=== PATIENT | male | born 1955 | race Caucasian/White ===

== ENCOUNTER → 2024-01-29 15:14 | Outpatient (BNVA) | payer BC, SELFPAY | PROVIDERS: Visit Provider Family Medicine | DX: I49.9 Cardiac arrhythmia, unspecified (principal) | CPT/HCPCS: 93005 ==

== ENCOUNTER 2024-05-06 16:54 | Outpatient (CLI) | payer BC, SELFPAY ==
--- NOTE | 2024-05-06 17:06 | XR_ITS ---
WS: [id number] XR lumbar spine 2-3V* [id number] REASON FOR EXAM: chronic back pain FINDINGS: Mild dextroscoliosis. Straightening of the normal lordosis. No significant vertebral body compression deformity or focal vertebral body lesion. Moderate disc base narrowing and osteophytosis throughout the lumbar spine. Mild anterolisthesis of L3 in relation to L2 and L4 in relation to L3. No spondylolysis. XR/XR lumbar spine 2-3V* [id number] IMPRESSION: Multilevel degenerative spondylosis.
== END 2024-05-06 16:55 | disposition home or self-care (01) ==
PROVIDERS: PCP Family Medicine; Visit Provider Family Medicine
DX: M47.896 Other spondylosis, lumbar region (principal); G89.29 Other chronic pain; M41.86 Other forms of scoliosis, lumbar region; I25.10 Atherosclerotic heart disease of native coronary artery without angina pectoris; M43.16 Spondylolisthesis, lumbar region; E11.9 Type 2 diabetes mellitus without complications; M1A.09X0 Idiopathic chronic gout, multiple sites, without tophus (tophi); G25.81 Restless legs syndrome
CPT/HCPCS: 72100; 80053; 80061; 82043; 83036; 84443; 85025

== ENCOUNTER → 2025-01-27 14:13 | Outpatient (BNVA) | payer BC, SELFPAY | PROVIDERS: PCP Family Medicine; Visit Provider Family Medicine | DX: E11.9 Type 2 diabetes mellitus without complications (principal); I25.10 Atherosclerotic heart disease of native coronary artery without angina pectoris; E03.8 Other specified hypothyroidism; R79.89 Other specified abnormal findings of blood chemistry; M1A.09X0 Idiopathic chronic gout, multiple sites, without tophus (tophi) | CPT/HCPCS: 80053; 83036; 84439; 84443; 84550; G0103 ==